=== PATIENT | male | born 1960 | race Caucasian/White ===

== ENCOUNTER 2017-08-16 01:49 | Emergency (ER) | payer OTHER ==
[2017-08-16 01:55] VITALS: BP 166/92; PULSE 113; RESP 16; TEMP 98.1; O2SAT 93
[2017-08-16] MEDS ORDERED: SILVER NITRATE APPLICATOR 1 APPL TP ONE (02:07)
[2017-08-16] MEDS ORDERED: OXYMETAZOLINE 30 ML NASAL SPRAY ONE (02:07)
[2017-08-16] MEDS ORDERED: TRANEXAMIC ACID 1,000 MG/10 ML VIAL TP ONE (02:25)
--- NOTE | 2017-08-16 02:28 | EDPHY ---
H & P Stated Complaint: acute onset nose bleed for 60mins Time Seen by Provider: 08/16/17 02:07 HPI/ROS: HPI The patient presents with epistaxis from his right naris which has been present for the last 1 hr. He was up at night, doing some reading and picked his nose. He began to have bleeding from his right nostril which was constant. He applied pressure, however did not improve, thus he came to the emergency department. REVIEW OF SYSTEMS Constitutional: No fever, no chills. Skin: No rashes. Neurological: No headache. PMHx: Healthy, not on any anticoagulants Soc Hx: Housed PHYSICAL General Appearance: Alert, no distress Eyes: Pupils equal and round no pallor or injection ENT, Mouth: Right naris with small amount of active bleeding, there is a focal area of the medial septal mucosa, Mucous membranes moist Respiratory: Breathing comfortably Neurological: A&O, moves all extremities Skin: Warm and dry, no rashes Extremities: symmetrical, full range of motion Psychiatric: Patient is oriented X 3, there is no agitation Source: Patient Exam Limitations: No limitations - Personal History Current Tetanus/Diphtheria Vaccine: Yes Current Tetanus Diphtheria and Acellular Pertussis (TDAP): Unsure - Medical/Surgical History Hx Asthma: No Hx Chronic Respiratory Disease: No Hx Diabetes: No Hx Cardiac Disease: No Hx Renal Disease: No Hx Cirrhosis: No Hx Alcoholism: No Hx HIV/AIDS: No Hx Splenectomy or Spleen Trauma: No Other PMH: none - Social History Smoking Status: Never smoked Constitutional: Initial Vital Signs Temperature (C) 36.7 C 08/16/17 01:52 Heart Rate 113 H 08/16/17 01:52 Respiratory Rate 16 08/16/17 01:52 Blood Pressure 166/92 H 08/16/17 01:52 O2 Sat (%) 93 08/16/17 01:52 O2 Delivery Mode Room Air Allergies/Adverse Reactions: No Known Allergies Allergy (Unverified 08/16/17 01:52) Medical Decision Making Procedures: NOSE BLEED Procedure: Epistaxis control. Indication: nosebleed not controlled by direct pressure. Risks, benefits, alternatives discussed with patient and consent obtained. The right nares was anesthetized with lidocaine and Afrin. The anterior epistaxis was identified. The patient was treated with cautery using silver nitrate stick and packing with gauze soaked in TXA. Following the procedure the patient was re-examined and the bleeding was well controlled. The patient tolerated the procedure well. The procedure was performed by myself. Differential Diagnosis: This is a 57-year-old healthy male, not on any medications with 1st episode of epistaxis. On exam, there is small amount of bleeding from anterior mucosa of the right naris. I suspect anterior epistaxis. Posterior is a consideration as well. In the emergency department, nasal clamps were placed and patient was given Afrin. This stopped most of his bleeding. Then, lidocaine was atomized into the right naris, cautery was performed followed by packing with complete resolution in his bleeding. He will be discharged home with nasal clamps and Afrin if the bleeding returns. I have given him follow-up information for ENT. I have instructed him to use Vaseline in his nose until then. - Data Points Medications Given: Discontinued Medications Tranexamic Acid (Cyklokapron) 500 mg TP EDNOW ONE Stop: 08/16/17 02:26 Last Admin: 08/16/17 03:09 Dose: 500 mg Departure - Departure Disposition: Home, Routine, Self-Care Clinical Impression: Acute anterior epistaxis Condition: Good Instructions: Nosebleed (ED) Additional Instructions: Please keep your nose moist by using a humidifier at night and using Vaseline inside your nose. You can follow up with the [facility] N[facility] Thro[facility] doctors in a few days if you have continued bleeding. Referrals: Suraj Couch MD [Medical Doctor] - As per Instructions
== END 2017-08-16 03:15 | disposition home or self-care (01) ==
PROC: 3E09XTZ Introduction of Destructive Agent into Nose, External Approach (ICD-10-PCS; principal; 2017-08-16)
DX: R04.0 Epistaxis (principal)